=== PATIENT | female | born 1970 | race Two or more races ===

== ENCOUNTER 2024-10-24 13:57 | Outpatient (RCR) | payer MEDICAID, SELFPAY ==
--- NOTE | 2024-10-24 15:07 | PTNOTE_ITS ---
PT OP Initial Eval Patient Information Outpatient Physical Therapy Treatment Date: 10/24/24 Visit Reasons: Gait and mobility Medical Diagnosis: R26.89 Treatment Dx #1: Balance Deficits Start of Care: 10/24/24 Date of Onset: 2 months ago Smoking Status Smoking Status: Current every day smoker Cessation Counseling Provided: MIGUEL was advised that quitting smoking is the single most important factor to protect the health of themselves and their family. Discussed the benefits of quitting smoking with patient. Encouraged patient to quit smoking and provided Cessation assistance materials and resources. yes Tobacco Use: Cigarette Years smoked: 20 Are you interested in quitting?: No Would you like additional Smoking Cessation Counseling?: No Initial Assessment Subjective: Pt is a 53 y/o female reports of loss of balance and blackout ~ 2 months ago. Pt mentioned she went to the ER, however, did not stayed. Pt's most recent CT scan found left cerebellar lesion. Pt is pending brain MRI. Pt currently does not have any deficits or notice decrease balance. Pt is coming to therapy per MD's order. Objective: BUE and BLE AROM: all motions are WNL BUE and BLE MMTs: grossly 4/5 Modified CTSIB (condition 4): 30 sec Sharpen Romber sec Tu sec Assessment: Pt demonstrate functional mobility, strength, and balance at this time leading to no impairments noted to required skilled physical therapy. Pt instructed to follow up with PCP post brain MRI result. Pt was evaluated and d/c from care; thank you for your referrals. Short Term and Performance Test Consultant Goals 1) Eval and D/C 2) Follow up with PRN Procedure Charges OP PT Eval Mod Complex 30 minutes: Yes
== END 2024-11-12 23:59 | disposition home or self-care (01) ==
LOC: CPTX 13:57
PROVIDERS: PCP Nurse Practitioner Family; Referring Provider Nurse Practitioner Family; Visit Provider Nurse Practitioner Family
DX: R26.89 Other abnormalities of gait and mobility (principal)
CPT/HCPCS: 97162

== ENCOUNTER → 2024-11-22 | Outpatient (CLI) | payer MEDICAID, SELFPAY ==
[2024-11-21 13:56] LABS: HCG Qualitative,Urine Negative
--- NOTE | 2024-11-22 12:30 | XR_ITS ---
Examination: MRI of brain without intravenous contrast. MRI brain with intravenous contrast. 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 Siemens high-resolution 1.52 Betty short bore scanner utilized. Sagittal sections, T1 weighted images, TR 500, TE 14, are performed. Axial sections proton-density and T2-weighted images have been obtained. Inversion recovery axial images, TR 9260, TE 111, TR 2500. Diffusion weighted images, axial sections, TR 4800, TE 128, B value 1000. Axial sections, ADC map, TR 4800, TE 128. Axial and coronal images were also obtained post 11 cc gadolinium administered intravenously. Findings:: Enlargement of the sella turcica is not present. The optic chiasm and infundibular stalk are not remarkable. There is no localized enlargement of the medulla or jonas. Fourth ventricle and cerebellar tonsils appear normal in position. No subacute area of hemorrhage density is seen. Fourth ventricle is midline. Mass in the cerebellopontine angle region is not evident. 7th and 8th nerve complexes exhibit symmetry Globes are symmetrical Orbital musculature including medial lateral rectus muscles do not exhibit abnormality Increased white matter signal is prominent, including old infarct left cerebellar hemisphere and bilateral basal ganglia old infarcts Effacement of the cortical sulcal markings is not identified. Mass effect upon the ventricular system is not identified. Diffusion-weighted images demonstrate no focus of restricted diffusion Contrast images demonstrate no abnormal enhancement Impression: Negative for acute hemorrhage mass effect or midline shift No acute infarct Old infarcts as above with prominent chronic microvascular white matter change
== END | disposition home or self-care (01) ==
LOC: SMRI 11-28 08:33
PROVIDERS: PCP Nurse Practitioner Family; Referring Provider Nurse Practitioner Family; Visit Provider Nurse Practitioner Family
DX: F19.11 Other psychoactive substance abuse, in remission (principal); G11.9 Hereditary ataxia, unspecified; R03.0 Elevated blood-pressure reading, without diagnosis of hypertension; Z32.00 Encounter for pregnancy test, result unknown; Z86.73 Personal history of transient ischemic attack (TIA), and cerebral infarction without residual deficits
CPT/HCPCS: 70553; 81025; A9579

== ENCOUNTER 2024-12-02 19:06 | Emergency (ER) | payer MEDICAID, SELFPAY ==
[2024-12-02 19:07] VITALS: BMI 26.6
[2024-12-02 20:01] VITALS: BP 143/98; PULSE 127; RESP 18; TEMP 37.9; O2SAT 96
--- NOTE | 2024-12-02 20:29 | PD.EDRME ---
Rapid Medical Screening Exam RME Arrival date/time: 12/02/24 19:06 54-year-old female reports with complaints of fever x 2 days Chief Complaint: Fever Time Seen by Provider: 12/02/24 19:09 Vital signs: Vital Signs Temperature 100.2 F 12/02/24 20:01 Pulse Rate 127 H 12/02/24 20:01 Respiratory Rate 18 12/02/24 20:01 Blood Pressure 143/98 H 12/02/24 20:01 Pulse Oximetry (%) 96 12/02/24 20:01 Oxygen Delivery Method Room Air 12/02/24 20:01
--- NOTE | 2024-12-02 21:41 | PD.EDFEVER ---
ED Fever RME/HPI General Chief Complaint: Fever Stated Complaint: FEVER, FEELS OFF BALANCEX2 DAYS Time Seen by Provider: 12/02/24 19:09 Arrival date/time: 12/02/24 19:06 54-year-old female reports with complaints of 2-day history of fever and feeling weak and fatigued. Patient denies nausea or vomiting abdominal pain shortness of breath chest pain cough or congestion. Patient daughter states that she has mass on the brain that's causing headaches however she is under the care of neurology for those. Patient states that she has not taken any medications for the fever Limitations: no limitations RME / HPI RME / HPI Narrative: 12/02/24 19:06 54-year-old female reports with complaints of fever x 2 days Related Data Allergies Allergy/AdvReac Type Severity Reaction Status Date / Time Penicillins Allergy Unknown UNKNOWN Verified 12/02/24 19:10 Review of Systems Constitutional Constitutional: Reports body ache(s), Denies chills, Reports fatigue, Reports fever(s) and Reports headache(s) ENT Ears, Nose, Mouth, and Throat: Reports headache(s), Denies neck pain, Denies tongue swelling and Denies vertigo Cardiovascular Cardiovascular: Denies chest pain and Denies dyspnea Respiratory Respiratory: Denies cough and Denies dyspnea Gastrointestinal Gastrointestinal: Denies abdominal pain, Denies nausea and Denies vomiting Genitourinary Genitourinary: Denies difficulty voiding and Denies dysuria Musculoskeletal Musculoskeletal: Denies back pain and Denies neck pain Integumentary/Breasts Skin/Breast: Denies erythema and Denies rash Neurologic Neurologic: Reports headache(s) and Denies vertigo Endocrine Endocrine: Reports fatigue Hematologic/Lymphatic Hematologic/Lymphatic: Denies easy bleeding and Denies easy bruising Allergic/Immunologic Allergic/Immunologic: Denies tongue swelling Past Medical History Social History SMOKING STATUS: Never smoker Physical Exam General Limitations: no limitations General appearance: alert and in no apparent distress Head Head exam: atraumatic Eye Eye exam: Present normal appearance, PERRL and EOMI ENT ENT exam: Present normal exam, normal oropharynx and mucous membranes moist Neck Neck exam: Present normal inspection, full ROM and trachea midline Chest Chest inspection: Present normal inspection and symmetric chest wall rise Respiratory Respiratory exam: Present normal lung sounds bilaterally Cardiovascular Cardiovascular exam: Present regular rate, normal rhythm and normal heart sounds Abdominal Exam Abdominal exam: Present soft and normal bowel sounds Extremities Exam Extremities exam: Present normal inspection and full ROM Back Exam Back exam: Present normal inspection and full ROM Neurological Exam Neurological exam: Present alert, oriented X3 and CN II-XII intact Psychiatric Psychiatric exam: Present normal affect and normal mood Skin Skin exam: Present warm, dry, intact and normal color ED Exam General Limitations: Present no limitations General appearance: Present alert and in no apparent distress Head Head exam: Present atraumatic Eye Eye exam: Present normal appearance, PERRL and EOMI ENT ENT exam: Present normal exam, normal oropharynx and mucous membranes moist Neck Neck exam: Present normal inspection, full ROM and trachea midline Chest Chest inspection: Present normal inspection and symmetric chest wall rise Respiratory Respiratory exam: Present normal lung sounds bilaterally Cardiovascular Cardiovascular exam: Present regular rate, normal rhythm and normal heart sounds Abdominal Exam Abdominal exam: Present soft and normal bowel sounds Extremities Exam Extremities exam: Present normal inspection and full ROM Back Exam Back exam: Present normal inspection and full ROM Neurological Exam Neurological exam: Present alert, oriented X3 and CN II-XII intact Psychiatric Psychiatric exam: Present normal affect and normal mood Skin Skin exam: Present warm, dry, intact and normal color Course Quality Measures none Orders Category Date Time Status Bedside COVID-19 Antigen Test NOW Care 12/02/24 20:28 Active Bedside Influenza A&B Antigen Test NOW Care 12/02/24 20:29 Completed Vital Signs Vital signs: Vital Signs Temperature 100.2 F 12/02/24 20:01 Pulse Rate 127 H 12/02/24 20:01 Respiratory Rate 18 12/02/24 20:01 Blood Pressure 143/98 H 12/02/24 20:01 Pulse Oximetry (%) 96 12/02/24 20:01 Oxygen Delivery Method Room Air 12/02/24 20:01 Fever Patient data External records reviewed:: None Clinical information provided by:: patient Social determinants that could affect healthcare access:: none Patient has the following chronic illnesses:: none How is presenting disease/condition affected by chronic disease/condition?: no chronic disease Evaluation data The following diagnostics were reviewed and interpreted by me:: lab results Lab and/or radiology exams considered but not ordered:: none Interpretation Summary: Influenza Medications / Prescriptions Medications or Prescriptions considered but not ordered:: None Medication administrations:: None Consultations Consultation(s) initiated? (list below): No Diagnosis Fever Differential Diagnosis: fever of unknown origin, viral infection and influenza Most likely diagnosis given after review of the tests above:: Influenza Admission Indicated Admission indicated?: not indicated Admission Request Was there a request for admission?: No Disposition Plan Disposition Plan: Discharge Discharge Attestation Discharge Attestation: The patient and all family members were given an opportunity to ask questions and understood the discharge instructions. Discharge instructions specifically effects, indications for sooner follow up or return to the emergency department, and the expected course of current diagnosis. Patient condition: Stable Discharge Plan Plan Patient Disposition: HOME (Self Care) Prescriptions/Referrals Referrals: Ashok)Beatrice PA-C [Primary Care Provider] - In 1 week Problem List Clinical Impression: Influenza Patient/Caregiver Discharge Instructions Discharge Activity: activity as tolerated Education Materials: ED Influenza (Adult) Additional Instructions: Hydrate well use [id number] medications as appropriate and needed for your symptoms and follow-up with your primary care provider if no improvement in 3 days Print Language: Zambian Stand Alone Forms: [employer] Award Info., Patient Portal Info Letter
[2024-12-02 21:55] VITALS: BP 147/96; PULSE 110; RESP 19; TEMP 37.2; O2SAT 98
== END 2024-12-02 21:55 | disposition home or self-care (01) ==
PROVIDERS: Emergency Provider Emergency Medicine; PCP Nurse Practitioner Family
DX: J11.1 Influenza due to unidentified influenza virus with other respiratory manifestations (principal)
CPT/HCPCS: 87400; 87811; 99283